=== PATIENT | female | born 1980 | race Caucasian/White ===

== ENCOUNTER 2018-07-09 15:21 | Inpatient (IN) | payer MEDICAID ==
[2018-07-09] MEDS: LACTATED RINGER'S 1,000 ML IV ×3 (16:10→17:23)
[2018-07-09] MEDS ORDERED: CARBOPROST 250 MCG INJ IM ×2 (16:30→17:30)
[2018-07-09] MEDS ORDERED: METHYLERGONOVINE 0.2 MG INJ IM ×2 (16:30→17:30)
[2018-07-09] MEDS ORDERED: OXYTOCIN 30 UNITS/LR 500 ML IV ×2 (16:30→17:30)
[2018-07-09] MEDS ORDERED: MISOPROSTOL 200 MCG TAB PR ×2 (16:30→17:30)
[2018-07-09] MEDS ORDERED: AMPICILLIN 2 GM/NS (PMX) 100 ML IV (16:30)
[2018-07-09] MEDS: ONDANSETRON 4 MG INJ IV (16:59)
[2018-07-09] MEDS: FAMOTIDINE 20 MG INJ IV (17:00)
[2018-07-09 17:07] LABS: ADD MAN DIFF? NO
[2018-07-09 17:10] LABS: ABNORMAL IP MESSAGE 1; BASOPHILS % 0.2 % (0.0-2.0); EOSINOPHILS # 0.1 10^3/ul (0.0-0.5); EOSINOPHILS % 1.2 % (0.0-7.0); HEMATOCRIT 37.8 % (37.0-47.0); HEMOGLOBIN 12.5 g/dl (12.0-16.0); LYMPHOCYTES # 1.7 10^3/ul (0.8-2.9); LYMPHOCYTES % 29.8 % (15.0-51.0); MEAN CORPUSCULAR HEMOGLOBIN 29.4 pg (29.0-33.0); MEAN CORPUSCULAR HGB CONC 33.1 g/dl (32.0-37.0); MEAN CORPUSCULAR VOLUME 88.9 fl (82.0-101.0); MEAN PLATELET VOLUME 13.6 fl (7.4-10.4); MONOCYTE # 0.4 10^3/ul (0.3-0.9); MONOCYTES % 6.7 % (0.0-11.0); NEUTROPHIL # 3.6 10^3/ul (1.6-7.5); NEUTROPHILS % 61.9 % (39.0-77.0); PLATELET COUNT 157 10^3/UL (140-415); RED BLOOD COUNT 4.25 10^6/ul (4.20-5.40); RED CELL DISTRIBUTION WIDTH 12.9 % (11.5-14.5)
[2018-07-09 17:10] LABS: WHITE BLOOD COUNT 5.8 10^3/ul (4.8-10.8)
[2018-07-09 17:24] LABS: POSITIVE DIFF @See below
[2018-07-09 17:29] LABS: INR 0.87; PROTIME 11.9 Sec (11.9-14.9); PT RATIO 0.9
[2018-07-09 17:30] LABS: PARTIAL THROMBOPLASTIN TIME 26.5 Sec (23.0-35.0)
[2018-07-09] MEDS ORDERED: HYDROmorphONE 0.5 MG/0.5 ML SYG IV ×2 (17:30)
[2018-07-09] MEDS ORDERED: NALOXONE (0.4 MG/ML) INJ IV (17:30)
[2018-07-09] MEDS ORDERED: KETOROLAC 30 MG INJ IV ×2 (17:30)
[2018-07-09] MEDS ORDERED: FENTAnyl 50 MCG/ML VIAL IV ×2 (17:30)
[2018-07-09] MEDS ORDERED: HYDROmorphONE 1 MG/5 ML IV SYRINGE IV ×3 (17:30)
[2018-07-09] MEDS ORDERED: ONDANSETRON 4 MG INJ IV ×2 (17:30)
[2018-07-09] MEDS ORDERED: DIPHENHYDRAMINE 50 MG INJ IV ×2 (17:30)
[2018-07-09 18:05] LABS: HEPATITIS B SURFACE ANTIGEN NEGATIVE (NEGATIVE)
[2018-07-10] MEDS: LACTATED RINGER'S 1,000 ML IV ×6 (01:17→18:41)
[2018-07-10] MEDS ORDERED: METOCLOPRAMIDE 10 MG INJ (10:16)
[2018-07-10] MEDS ORDERED: FAMOTIDINE 20 MG INJ (10:23)
[2018-07-10] MEDS: CITRIC ACID/NA CITRATE 30 ML CUP PO ×2 (11:00→12:40)
[2018-07-10] MEDS: METOCLOPRAMIDE 10 MG INJ IV ×2 (11:00→12:39)
[2018-07-10] MEDS: FAMOTIDINE 20 MG INJ IV (12:40)
[2018-07-10] MEDS ORDERED: morphine SULFATE/PF (10 MG/10 ML) INJ (13:34)
[2018-07-10] MEDS ORDERED: PHENYLephrine (100 MCG/ML) 10ML SYG (13:47)
[2018-07-10] MEDS ORDERED: ONDANSETRON 4 MG INJ IV ×2 (14:00→18:30)
[2018-07-10] MEDS ORDERED: EPHEDrine SULFATE 50 MG/5 ML SYG IV (14:00)
[2018-07-10] MEDS ORDERED: KETOROLAC 30 MG INJ IV (14:00)
[2018-07-10] MEDS ORDERED: FENTAnyl 50 MCG/ML VIAL IV ×3 (14:00)
[2018-07-10] MEDS ORDERED: MEPERIDINE 25 MG INJ IV (14:00)
[2018-07-10] MEDS ORDERED: HYDROmorphONE 1 MG/5 ML IV SYRINGE IV ×3 (14:00)
[2018-07-10] MEDS ORDERED: PROCHLORPERAZINE 10 MG INJ IV (14:00)
[2018-07-10] MEDS ORDERED: EPHEDrine 25 MG/5 ML SYG (14:09)
[2018-07-10] MEDS ORDERED: OXYTOCIN 30 UNITS/LR 500 ML IV ×2 (14:34→18:00)
[2018-07-10] MEDS: AZITHROMYCIN 500MG/NS (PMX) 250 ML IVPB (15:43)
[2018-07-10] MEDS: OXYTOCIN 30 UNITS/LR 500 ML IV (15:44)
[2018-07-10] MEDS: CEFAZOLIN 2 GM/50 ML (PMX) 50 ML IVPB ×2 (15:44→21:00)
[2018-07-10] MEDS: DIPHENHYDRAMINE 50 MG INJ IV (16:30)
[2018-07-10] MEDS ORDERED: HYDROCODONE/APAP (5/325) TAB PO (18:00)
[2018-07-10] MEDS ORDERED: METHYLERGONOVINE 0.2 MG INJ IM (18:00)
[2018-07-10] MEDS ORDERED: CEFAZOLIN 2 GM/50 ML (PMX) 50 ML IVPB (18:00)
[2018-07-10] MEDS ORDERED: CARBOPROST 250 MCG INJ IM (18:00)
[2018-07-10] MEDS ORDERED: MISOPROSTOL 200 MCG TAB PR (18:00)
[2018-07-10] MEDS ORDERED: NALOXONE (0.4 MG/ML) INJ IV (18:30)
[2018-07-10] MEDS ORDERED: DIPHENHYDRAMINE 50 MG INJ IV (18:30)
[2018-07-10] MEDS ORDERED: HYDROmorphONE 0.5 MG/0.5 ML SYG IV ×2 (18:30)
[2018-07-10] MEDS ORDERED: ZOLPIDEM 5 MG TAB PO (18:30)
[2018-07-10] MEDS: CLINDAMYCIN 300 MG CAP PO (18:40)
[2018-07-10] MEDS: KETOROLAC 30 MG INJ IV (20:59)
[2018-07-10] MEDS: SENNA/DOCUSATE NA (8.6MG/50MG) TAB PO (21:00)
[2018-07-10 22:02] LABS: RAPID PLASMA REAGIN NONREACTIVE (NR)
[2018-07-11] MEDS: CLINDAMYCIN 300 MG CAP PO ×4 (00:46→17:54)
[2018-07-11] MEDS: LACTATED RINGER'S 1,000 ML IV ×2 (02:48→11:14)
[2018-07-11] MEDS: CEFAZOLIN 2 GM/50 ML (PMX) 50 ML IVPB ×2 (05:10→13:06)
[2018-07-11] MEDS: KETOROLAC 30 MG INJ IV ×2 (06:30→13:07)
[2018-07-11 07:10] LABS: ABNORMAL IP MESSAGE 1; HEMATOCRIT 29.6 % (37.0-47.0); HEMOGLOBIN 9.7 g/dl (12.0-16.0); MEAN CORPUSCULAR HEMOGLOBIN 29.5 pg (29.0-33.0); MEAN CORPUSCULAR HGB CONC 32.8 g/dl (32.0-37.0); MEAN PLATELET VOLUME 11.7 fl (7.4-10.4); RED BLOOD COUNT 3.29 10^6/ul (4.20-5.40); RED CELL DISTRIBUTION WIDTH 12.6 % (11.5-14.5)
[2018-07-11 07:10] LABS: WHITE BLOOD COUNT 6.5 10^3/ul (4.8-10.8)
[2018-07-11 07:16] LABS: POSITIVE DIFF @See below
[2018-07-11 07:25] LABS: ADD MAN DIFF? NO; BASOPHILS % 0.2 % (0.0-2.0); EOSINOPHILS % 1.1 % (0.0-7.0); LYMPHOCYTES % 17.5 % (15.0-51.0); MONOCYTES % 5.3 % (0.0-11.0); NEUTROPHILS % 75.7 % (39.0-77.0); PLATELET COUNT 102 10^3/UL (140-415)
[2018-07-11] MEDS: SENNA/DOCUSATE NA (8.6MG/50MG) TAB PO ×2 (09:02→22:08)
[2018-07-11] MEDS: IBUPROFEN 800 MG TAB PO ×2 (19:00→22:08)
[2018-07-11] MEDS: OXYCODONE/ACETAMINOPHEN (5/325) TAB PO (20:09)
[2018-07-11] MEDS ORDERED: BISACODYL 10 MG SUPP PR (23:49)
[2018-07-12] MEDS: BISACODYL 10 MG SUPP PR (00:01)
[2018-07-12] MEDS: OXYCODONE/ACETAMINOPHEN (5/325) TAB PO ×3 (04:23→19:27)
[2018-07-12] MEDS: LANOLIN HPA 1 PKT TOP (04:23)
[2018-07-12] MEDS: IBUPROFEN 800 MG TAB PO ×3 (05:36→21:49)
[2018-07-12] MEDS: CLINDAMYCIN 300 MG CAP PO ×4 (05:36→17:55)
[2018-07-12] MEDS: SENNA/DOCUSATE NA (8.6MG/50MG) TAB PO ×2 (09:18→21:48)
[2018-07-12] MEDS: ACETAMINOPHEN 325 MG TAB PO (17:00)
[2018-07-12] MEDS: NA PHOSPHATE/BIPHOS 133 ML ENEMA PR (19:31)
[2018-07-13] MEDS: CLINDAMYCIN 300 MG CAP PO ×2 (00:03→05:54)
[2018-07-13] MEDS: IBUPROFEN 800 MG TAB PO (05:55)
[2018-07-13] MEDS: ACETAMINOPHEN 325 MG TAB PO ×2 (06:00)
[2018-07-13] MEDS: MEASLES,MUMPS,RUBELLA VACCINE INJ SC* (07:11)
[2018-07-13] MEDS: DIPHTH/TET/ACEL PERTUSS (ADULT) 0.5 ML VIAL IM* (07:11)
[2018-07-13] MEDS: SENNA/DOCUSATE NA (8.6MG/50MG) TAB PO (09:34)
== END 2018-07-13 12:55 | disposition home or self-care (01) | DRG 785 ==
LOC: L-D 15:21 → PP1 07-10 17:29
PROVIDERS: Obstetrics & Gynecology
PROC: 10D00Z1 Extraction of Products of Conception, Low, Open Approach (ICD-10-PCS; principal; 2018-07-10 14:00)
PROC: 0UL70ZZ Occlusion of Bilateral Fallopian Tubes, Open Approach (ICD-10-PCS; 2018-07-10 14:00)
DX: O34.211 Maternal care for low transverse scar from previous cesarean delivery (principal); Z3A.39 39 weeks gestation of pregnancy; Z37.0 Single live birth; Z30.2 Encounter for sterilization
CPT/HCPCS: 82962; 85025; 85610; 85730; 86592; 86850; 86900; 86901; 87340; 88302; 99464